=== PATIENT | female | born 1940 | race Two or more races ===

== ENCOUNTER 2021-03-27 15:48 | Emergency (ER) | payer OTHER ==
[~2021-03-27] VITALS: Ht 165.1 cm; Wt 61.2 kg
[2021-03-27] MEDS ORDERED: METOPROLOL SUCC50 MG (16:12)
== END 2021-03-27 22:40 | disposition home or self-care (01) ==
LOC: ER 15:48
DX: J39.8 Other specified diseases of upper respiratory tract (principal); E04.2 Nontoxic multinodular goiter; R13.19 Other dysphagia; R05.9 Cough, unspecified

== ENCOUNTER 2021-03-29 10:42 | Outpatient (CLI) | payer OTHER ==
[~2021-03-29 10:42] MED LIST: METOPROLOL SUCC50 MG
== END 2021-03-29 10:56 | disposition home or self-care (01) ==
LOC: SONOGRAMA 10:42
PROVIDERS: ATTEND Internal Medicine
DX: E04.2 Nontoxic multinodular goiter (principal)

== ENCOUNTER 2021-04-06 09:21 | Outpatient (CLI) | payer OTHER | END 2021-04-06 10:08 | disposition home or self-care (01) | LOC: SONOGRAMA 09:21 | PROVIDERS: ATTEND Pathology Anatomic Pathology & Clinical Pathology | DX: E07.89 Other specified disorders of thyroid (principal); E04.1 Nontoxic single thyroid nodule; D34 Benign neoplasm of thyroid gland; E04.8 Other specified nontoxic goiter ==